=== PATIENT | female | born 1990 | race Hispanic/Latino ===

== ENCOUNTER 2023-08-19 05:32 | Inpatient (IN) | payer OTHER ==
[2023-08-18 11:24] LABS: Hematocrit 39.2 % (34.9-44.5); Hemoglobin 13.2 g/dL (12.0-15.5); Mean Corpuscular HGB CONC 33.7 g/dL (32.0-36.0); Mean Corpuscular Hemoglobin 28.5 pg (27.0-33.0); Mean Corpuscular Volume 84.7 fl (81.6-98.3); Mean Platelet Volume 12.6 fl (7.4-10.4); Platelet Count 208 10x3/uL (150-450); RBC Distribution Width 15.9 % (11.5-14.5); Red Blood Cell (RBC) Count 4.63 10x6/uL (3.90-5.03); White Blood Cell (WBC) Count 12.5 10x3/uL (3.5-10.5)
[2023-08-18 11:54] LABS: HBSAg Index 0.27 S/CO (0-0.99); HIV (1/2) Antibody/Antigen Non-Reactive (NonReactive); HIV 1/2 INDEX 0.09 S/CO (<1.00); Hep B Surf Ag Non-Reactive S/CO (NonReactive)
[2023-08-18 11:55] LABS: Syphilis Antibody Nonreactive (Nonreactive); Syphilis Antibody Index 0.05 S/CO (<1.00 Non-Reactive)
[2023-08-19] MEDS ORDERED: Oxytocin 30 units/NS 500 ML 500 ML IV SCH (05:54)
[2023-08-19] MEDS ORDERED: Lactated Ringer's 1,000 ML IV SCH (05:54)
[2023-08-19] MEDS ORDERED: Ondansetron PF 4 MG/2 ML Vial IVP PRN ×3 (05:54→07:03)
[2023-08-19] MEDS ORDERED: Bicitra 30 ML UDCUP PO PRN (05:54)
[2023-08-19] MEDS ORDERED: Famotidine/PF 20 mg/2ml Vial SLOW IVP PRN (05:54)
[2023-08-19] MEDS ORDERED: hydrALAZINE 20 MG/ML VIAL SLOW IVP PRN ×2 (05:54→07:43)
[2023-08-19] MEDS ORDERED: CEFAZOLIN 2 GM in Sodium Chloride 0.9% 100 ML IVPB SCH (05:54)
[2023-08-19] MEDS ORDERED: Promethazine HCl 25 MG/ML VIAL IM PRN ×2 (05:54→07:03)
[2023-08-19 05:56] VITALS: BMI 43.0
[2023-08-19] MEDS ORDERED: Moisturizing Cream (Eucerin) 113 GM JAR TOP PRN (07:03)
[2023-08-19] MEDS ORDERED: Meperidine HCl/PF 25 MG (1 mL) VIAL SLOW IVP PRN (07:03)
[2023-08-19] MEDS ORDERED: Naloxone HCl 0.4 mg/ml Vial IVP PRN ×2 (07:03)
[2023-08-19] MEDS ORDERED: fentaNYL 50 mcg/mL 1 mL Vial SLOW IVP PRN (07:03)
[2023-08-19] MEDS ORDERED: Naloxone HCl 0.4 mg/ml Vial IV PRN (07:03)
[2023-08-19] MEDS ORDERED: Promethazine HCl 25 MG SUPP PR PRN (07:03)
[2023-08-19] MEDS ORDERED: Communication Order-Pharmacy FS SCH (07:15)
[2023-08-19] MEDS ORDERED: Misoprostol 200 MCG TAB PR PRN (07:43)
[2023-08-19] MEDS: Methylergonovine 0.2 MG/ML VIAL IM PRN (08:21)
[2023-08-19] MEDS: diphenhydrAMINE 50 MG/ML VIAL IVP PRN (11:11)
[2023-08-19] MEDS: Tranexamic Acid 1,000 MG/10 ML VIAL ONE (11:48)
[2023-08-19] MEDS: Misoprostol 200 MCG TAB ONE (11:48)
[2023-08-19] MEDS: Ketorolac Tromethamine 30 MG (1 mL) VIAL IVP SCH (11:48)
[2023-08-19] MEDS: Carboprost 250 MCG/ML AMP ONE (11:48)
[2023-08-19] MEDS: Boostrix 0.5 ML (Tdap) VIAL (>/=7 yrs of age) IM ONE (11:49)
[2023-08-19] MEDS: Ferrous Sulfate 325 MG TAB PO SCH (11:49)
[2023-08-19] MEDS: Acetaminophen 325 MG TAB PO SCH (11:49)
[2023-08-19] MEDS: Methylergonovine 0.2 MG/ML VIAL ONE (11:49)
[2023-08-19] MEDS: Docusate 100 MG CAP PO SCH (11:50)
[2023-08-19] MEDS: Ketorolac Tromethamine 30 MG (1 mL) VIAL IVP PRN (21:01)
[2023-08-19] MEDS: Simethicone Chewable 80 MG TAB PO PRN (21:11)
[2023-08-20] MEDS: HYDROcodone/Acetaminophen 5/325 mg Tablet PO PRN ×2 (05:29→20:22)
[2023-08-20 05:56] LABS: Hematocrit 34.2 % (34.9-44.5); Hemoglobin 10.9 g/dL (12.0-15.5); Mean Corpuscular HGB CONC 31.9 g/dL (32.0-36.0); Mean Corpuscular Hemoglobin 27.5 pg (27.0-33.0); Mean Corpuscular Volume 86.4 fl (81.6-98.3); Mean Platelet Volume 12.1 fl (7.4-10.4); Platelet Count 205 10x3/uL (150-450); RBC Distribution Width 15.9 % (11.5-14.5); Red Blood Cell (RBC) Count 3.96 10x6/uL (3.90-5.03); White Blood Cell (WBC) Count 16.4 10x3/uL (3.5-10.5)
[2023-08-20] MEDS: Ibuprofen 800 MG TAB PO SCH (21:45)
[2023-08-21 09:16] VITALS: BP 102/54; TEMP 98.4
== END 2023-08-21 12:30 | disposition home or self-care (01) | DRG 788 ==
LOC: CSHLD 05:32 → CSHPP 11:27
PROVIDERS: ADMIT Obstetrics & Gynecology; ATTEND Obstetrics & Gynecology
PROC: 10D00Z1 Extraction of Products of Conception, Low, Open Approach (ICD-10-PCS; principal; 2023-08-19)
PROC: 0UN90ZZ Release Uterus, Open Approach (ICD-10-PCS; 2023-08-19)
DX: O34.211 Maternal care for low transverse scar from previous cesarean delivery (principal); Z3A.39 39 weeks gestation of pregnancy; Z37.0 Single live birth; N73.6 Female pelvic peritoneal adhesions (postinfective)
CPT/HCPCS: 36415; 51702; 85027; 86780; 86850; 86900; 86901; 87340; 87389; J1200; J1885; J2210